=== PATIENT | male | born 1955 | race Caucasian/White ===

== ENCOUNTER → 2018-09-26 | Outpatient (CLI) | payer BC, OTHER | LOC: M SLEEP 19:39 | DX: G47.33 Obstructive sleep apnea (adult) (pediatric) (principal); R40.0 Somnolence | CPT/HCPCS: 95810 ==

== ENCOUNTER → 2018-11-11 | Outpatient (CLI) | payer BC, OTHER ==
[~2018-11-11] MED LIST: ALLO100T PO; LEVI10TA22 PO; PRAV20TA2 PO; ZOSTINJ SC
--- NOTE | 2018-11-15 09:22 | SLEEPCENT ---
DATE OF PROCEDURE: 11/11/2018 ORDERED BY: Desiree Gomes. Nocturnal polysomnography was performed for titration of pressure therapy in this patient with severe obstructive sleep apnea syndrome. Apnea-hypopnea index of 88.2. For testing, the patient was fit with a [employer] Batool View full face mask of medium size, 4 cm of water pressure were applied to the circuit and the lights were extinguished. 7 hours and 32 minutes of data were reviewed. There were 371 minutes of sleep identified. Sleep latency was mildly delayed at 14 minutes. REM latency was short at 54 minutes. Sleep architecture improved with optimal pressure therapy. There were four REM cycles noted. Overall sleep efficiency was 84%. The electrocardiogram showed a sinus rhythm with an average heart rate of 55 beats per minute. EEG showed normal waveforms for awake and sleep. Multiple pressures were attempted during the study. On review, optimal sleep was seen at a CPAP pressure of +16 with which the patient slept through REM without respiratory events of significance or oxygen desaturation. Significant activity was seen in the limb leads despite initiation of pressure therapy. However limb movement arousal index was only 7.9. IMPRESSION: Obstructive sleep apnea syndrome (G47.33). RECOMMENDATIONS: Nightly use of pressure therapy 16 cm of water.
== END ==
LOC: M SLEEP 20:00
PROVIDERS: ATTEND Nurse Practitioner Family
DX: G47.33 Obstructive sleep apnea (adult) (pediatric) (principal)

== ENCOUNTER → 2019-05-22 | Outpatient (REF) | payer OTHER | LOC: M LAB REF 17:07 | PROVIDERS: ATTEND Internal Medicine | DX: M10.9 Gout, unspecified (principal) ==